=== PATIENT | female | born 1940 | race Caucasian/White ===

== ENCOUNTER 2021-04-16 02:43 | Inpatient (IN) | payer MEDICARE, MEDICAID ==
[~2021-04-16] VITALS: Ht 172.7 cm; Wt 109.9 kg
[~2021-04-16 02:43] MED LIST: ASPI-1169 PO; LOSA25TA3 PO; SIMV10TA98 PO; SITA1TAB6 PO
[2021-04-16] MEDS ORDERED: IV NS 0.9% 1,000 ML BAG IV ONE (03:00)
[2021-04-16] MEDS ORDERED: ACETAMINOPHEN 325 MG TABLET PO ONE (03:00)
[2021-04-16] MEDS ORDERED: ACETAMINOPHEN ES 500 MG TABLET ONE (03:00)
--- NOTE | 2021-04-16 03:02 | NUR ---
PATIENT [id number] FROM [facility] C/O SOB SATTING AT 90% ROOM AIR. PATIENT PLACED ON NC 4L SATTING AT 98%. PATIENT ALERT AND ORIENTED X1. PATIENT RESPONDS TO STIMULI. PATIENT ON O2 AND PLACED ON A MONITOR
--- NOTE | 2021-04-16 03:04 | NUR ---
EMT @ BEDSIDE FOR EKG
--- NOTE | 2021-04-16 03:04 | NUR ---
PROFESSOR OF BIOCHEMISTRY @ BEDSIDE
--- NOTE | 2021-04-16 03:15 | NUR ---
urine sent to lab
[2021-04-16 03:34] LABS: BASOPHILS % (AUTO) 0.2 % (0.0-2.0); HEMATOCRIT 27 % (33-45); HEMOGLOBIN 8.3 g/dL (11.5-14.8); LYMPHOCYTES # (AUTO) 0.4 K/uL (0.8-4.8); LYMPHOCYTES % (AUTO) 1.9 % (20.0-44.0); MEAN CORPUSCULAR HGB CONC 31 g/dl (31.0-36.0); MEAN CORPUSCULAR VOLUME 83 fL (82-100); MONOCYTES # (AUTO) 0.7 K/uL (0.1-1.30); MONOCYTES % (AUTO) 3.3 % (2.0-12.0); NEUTROPHILS % (AUTO) 94.6 % (43.0-81.0); PLATELET COUNT (AUTO) 251 K/uL (150-450); RED BLOOD CELL COUNT(AUTO) 3.19 MIL/uL (4.0-5.2); WHITE BLOOD COUNT (AUTO) 20.1 K/uL (4.3-11.0)
--- NOTE | 2021-04-16 03:37 | NUR ---
RAD AT BEDSIDE
[2021-04-16 03:45] LABS: CARBON DIOXIDE 24 mmol/L (21-32); CHLORIDE 98 mmol/L (98-107); GLUCOSE 210 mg/dL (74-106); POTASSIUM 5.8 mmol/L (3.5-5.1); SODIUM SERUM 131 mmol/L (136-145); UREA NITROGEN, BLOOD 73 mg/dL (7-18)
[2021-04-16 03:59] LABS: ALANINE AMINOTRANSFERASE 209 U/L (12-78); ALBUMIN 1.5 g/dL (3.4-5.0); ALKALINE PHOSPHATASE 232 U/L (46-116); ASPARTATE AMINOTRANSFERASE 322 U/L (15-37); BILIRUBIN,DIRECT 0.4 mg/dL (0.0-0.2); BILIRUBIN,TOTAL 0.7 mg/dL (0.2-1.0)
--- NOTE | 2021-04-16 04:02 | NUR ---
per lab lactic 3.1
[2021-04-16 04:07] LABS: BILIRUBIN,URINE NEGATIVE (NEGATIVE); COLOR,URINE YELLOW (YELLOW); LEUKOCYTE ESTERASE ,URINE LARGE (NEGATIVE); NITRITE, URINE POSITIVE (NEGATIVE); PH,URINE 8.5 (5.0-8.0); PROTEIN,URINE 100 mg/dl (NEGATIVE); UGLUCOSE NEGATIVE (NEGATIVE); UROBILINOGEN,URINE 0.2 EU/dL (0.2)
[2021-04-16] MEDS ORDERED: LEVOFLOXACIN 500 MG /D5W 100ML 500 MG/100 ML PIGGYBACK IV ONE (04:30)
[2021-04-16] MEDS ORDERED: AZITHROMYCIN 500 MG in IV D5W 250 ML IV ONE (04:30)
[2021-04-16] MEDS ORDERED: CALCIUM CHLORIDE 1,000 MG/10 ML DISP.SYRIN IV ONE (04:30)
[2021-04-16] MEDS ORDERED: ASPIRIN 325 MG TABLET PO ONE (04:30)
[2021-04-16] MEDS ORDERED: SODIUM POLYSTYRENE SULFONATE 15 G/60 ML BOTTLE PO ONE (04:30)
[2021-04-16] MEDS ORDERED: ALBUTEROL FS 2.5 MG/3 ML VIAL.NEB NEB ONE (04:30)
[2021-04-16] MEDS ORDERED: SODIUM BICARBONATE SYR 50 MEQ/50 ML DISP.SYRIN IV ONE (04:30)
[2021-04-16] MEDS ORDERED: LORA10TA7 PO (04:44)
[2021-04-16] MEDS ORDERED: ASCO500T21 PO (04:44)
[2021-04-16] MEDS ORDERED: ATOR40TA PO (04:44)
[2021-04-16] MEDS ORDERED: ZINC220C6 PO (04:44)
[2021-04-16] MEDS ORDERED: LEVOFLOXACIN 500 MG /D5W 100ML 100 ML IV ONE (04:44)
[2021-04-16] MEDS ORDERED: CRAN425C6 PO (04:44)
[2021-04-16] MEDS ORDERED: GLIP10TA11 PO (04:44)
[2021-04-16] MEDS ORDERED: CRAN3875 PO (04:44)
[2021-04-16] MEDS ORDERED: MULT-447 PO (04:44)
[2021-04-16] MEDS ORDERED: PREG100C PO (04:44)
[2021-04-16] MEDS ORDERED: LEVO25TA9 PO (04:44)
[2021-04-16] MEDS ORDERED: FAMO20TA8 PO (04:44)
[2021-04-16] MEDS ORDERED: NIFE-35 PO (04:44)
[2021-04-16] MEDS ORDERED: DOCU-141 PO (04:44)
[2021-04-16] MEDS ORDERED: NITR100C6 PO (04:44)
[2021-04-16] MEDS ORDERED: FLUT16SP BNOSTRILS (04:44)
[2021-04-16] MEDS ORDERED: AZITHROMYCIN 500 MG VIAL ONE (04:44)
[2021-04-16] MEDS ORDERED: CALCIUM CHLORIDE 1,000 MG/10 ML DISP.SYRIN ONE (04:45)
[2021-04-16] MEDS ORDERED: SODIUM POLYSTYRENE SULFONATE 15 G/60 ML BOTTLE ONE (04:45)
[2021-04-16] MEDS ORDERED: ASPIRIN 325 MG TABLET ONE (04:45)
[2021-04-16] MEDS ORDERED: SODIUM BICARBONATE SYR 50 MEQ/50 ML DISP.SYRIN ONE (04:45)
[2021-04-16] MEDS ORDERED: ALBUTEROL FS 2.5 MG/3 ML VIAL.NEB ONE (04:47)
[2021-04-16] MEDS ORDERED: LABETALOL 20 MG/4 ML VIAL IV PRN (05:00)
[2021-04-16] MEDS ORDERED: ONDANSETRON HCL/PF 4 MG/2 ML VIAL IVP PRN (05:00)
[2021-04-16] MEDS ORDERED: Z GUARD REMEDY 2 OZ OINT TP PRN (05:00)
[2021-04-16] MEDS ORDERED: DEXTROSE 50%-WATER 50 ML DISP.SYRIN IV PRN (05:00)
[2021-04-16] MEDS ORDERED: ACETAMINOPHEN 325 MG TABLET PO PRN (05:00)
[2021-04-16] MEDS ORDERED: IPRATROPIUM NEB FS 0.5 MG/2.5 ML AMPUL.NEB NEB PRN (05:00)
[2021-04-16] MEDS ORDERED: hydrALAZINE HCL IV 20 MG VIAL IV PRN (05:00)
--- NOTE | 2021-04-16 05:15 | NUR ---
US AT BEDSIDE
[2021-04-16 06:22] LABS: BACTERIA,URINE Moderate /HPF (None Seen); SQUAMOUS EPITHELIAL CELL,UR Few /HPF (None Seen); WBC,URINE 21-50 /HPF (0-3)
--- NOTE | 2021-04-16 06:22 | NUR ---
PATIENT TO BE TRANSFERRED AFTER CHANGE OF SHIFT TO ROOM 104
[2021-04-16 06:23] LABS: URINE AMORPHOUS URATE Moderate /HPF (None Seen)
--- NOTE | 2021-04-16 07:13 | NUR ---
CALLED FOR REPORT. NO NURSE YET ASSIGNED, WORKING ON UNIT ASSIGNMENTS
--- NOTE | 2021-04-16 07:21 | NUR ---
REPORT GIVEN TO FELICIA ORR FOR MARCUS
--- NOTE | 2021-04-16 07:59 | NUR ---
report given to nurse Julio Cesar
[2021-04-16] MEDS ORDERED: VANCOMYCIN 1.25 GM in IV D5W 250 ML IV SCH ×2 (08:00→11:00)
--- NOTE | 2021-04-16 08:38 | NUR ---
THE PATIENT IS TRANSFERED TO ROOM 104 PER ACLS POLICY
[2021-04-16] MEDS ORDERED: CEFEPIME 2 GM in IV D5W 100 ML IV SCH (09:00)
[2021-04-16] MEDS ORDERED: CEFEPIME 1 GM in IV D5W 50 ML IV SCH (09:00)
[2021-04-16] MEDS: FLUTICASONE/VILANTEROL 1 EACH BLST.W.DEV IH SCH (09:00)
[2021-04-16] MEDS ORDERED: VANCOMYCIN 1 GM in IV D5W 250 ML IV SCH (09:00)
--- NOTE | 2021-04-16 09:00 | NUR ---
RN NOTE PT RECEIVED FROM ER. BP 119/65, HR 66, SAT 02 >99% WITH 5L PLACED. PT A/O X2. WILL CONTINUE TO MONITOR.
[2021-04-16] MEDS: ALBUMIN 25% 25 GM in PREMIX 1 EA IV SCH ×2 (09:19→17:17)
[2021-04-16] MEDS: BLOOD SUGAR DIAGNOSTIC 1 EACH STRIP VI SCH ×4 (09:20→22:39)
[2021-04-16] MEDS: HEPARIN SODIUM, PORCINE 5000 UNITS/1 ML VIAL SQ SCH ×2 (09:21→21:37)
[2021-04-16] MEDS: INSULIN REGULAR, HUMAN 100 UNIT/ML 3 ML VIAL SQ PRN ×2 (09:24→12:38)
[2021-04-16] MEDS: FUROSEMIDE 100 MG/10 ML VIAL IV SCH ×3 (12:22→19:46)
[2021-04-16] MEDS: CEFEPIME 2 GM in IV D5W 100 ML IV SCH (13:52)
[2021-04-16 17:00] VITALS: BP 129/69
--- NOTE | 2021-04-16 19:30 | NUR ---
R D ENGINEER OPENING NOTES: RECEIVED PATIENT FROM DAY SHIFT, PATIENT IN BED, AWAKE, A/O X2, NC AT 5L SATURATING AT 95%, R. FOREARM #20 INTACT AND PATENT, TELE MONITOR SHOWS SR, NO SIGNS OF SOB, NO SIGNS OF DISTRESS, BED AT LOWEST POSITION, BRAKES LOCKED AND IN PLACE, SIDE RAILS UP X2, BED ALARM ON, CALL LIGHT WITHIN REACH, WILL CONTINUE TO MONITOR AND IMPLEMENT NURSING INTERVENTIONS NECESSARY.
[2021-04-16 21:00] VITALS: BP 93/42
[2021-04-17 01:00] VITALS: BP 120/54
[2021-04-17 05:00] VITALS: BP 126/53
--- NOTE | 2021-04-17 06:20 | NUR ---
INTERNATIONAL MANAGER CLOSING NOTES: PATIENT IN BED, SLEEPING, A/O X2, TELE MONITOR SHOWS NSR, R. FOREARM #20 PATENT AND INTACT, PATIENT NPO, ON NC AT 5L, NO SOB, NO DISTRESS NOTED, BED AT LOWEST POSITION, BRAKES LOCKED AND IN PLACE, SIDE RAILS UP X2, CALL LIGHT WITHIN REACH, WILL CONTINUE TO MONITOR AND IMPLEMENT NURSING INTERVENTIONS NEEDED. WILL ENDORSE TO DAY SHIFT NURSE.
[2021-04-17 06:48] LABS: BASOPHILS % (AUTO) 0.2 % (0.0-2.0); HEMATOCRIT 23 % (33-45); HEMOGLOBIN 7.6 g/dL (11.5-14.8); LYMPHOCYTES # (AUTO) 0.3 K/uL (0.8-4.8); LYMPHOCYTES % (AUTO) 2.7 % (20.0-44.0); MEAN CORPUSCULAR HGB CONC 33 g/dl (31.0-36.0); MEAN CORPUSCULAR VOLUME 82 fL (82-100); MONOCYTES # (AUTO) 0.4 K/uL (0.1-1.30); MONOCYTES % (AUTO) 3.6 % (2.0-12.0); NEUTROPHILS # (AUTO) 10.1 K/uL (1.8-8.9); NEUTROPHILS % (AUTO) 92.5 % (43.0-81.0); PLATELET COUNT (AUTO) 203 K/uL (150-450); RED BLOOD CELL COUNT(AUTO) 2.78 MIL/uL (4.0-5.2)
[2021-04-17 06:59] LABS: ALANINE AMINOTRANSFERASE 199 U/L (12-78); ALBUMIN 1.9 g/dL (3.4-5.0); ALKALINE PHOSPHATASE 184 U/L (46-116); ASPARTATE AMINOTRANSFERASE 288 U/L (15-37); BILIRUBIN,TOTAL 0.6 mg/dL (0.2-1.0); CALCIUM, SERUM 8.6 mg/dL (8.5-10.1); CARBON DIOXIDE 25 mmol/L (21-32); CHLORIDE 98 mmol/L (98-107); CREATININE 2.5 mg/dL (0.6-1.3); GLUCOSE 93 mg/dL (74-106); MAGNESIUM 2.1 mg/dL (1.8-2.4); PHOSPHORUS 3.9 mg/dL (2.5-4.9); POTASSIUM 4.3 mmol/L (3.5-5.1); SODIUM SERUM 133 mmol/L (136-145); TOTAL PROTEIN, SERUM 6.8 g/dL (6.4-8.2); UREA NITROGEN, BLOOD 77 mg/dL (7-18)
--- NOTE | 2021-04-17 07:00 | NUR ---
RN NOTE RECEIVED PT IN BED, ASLEEP AROUSABLE. NO SOB. ON O2 AT 5LPM SATURATING 95-100. ON TELE MONITOR WITH SR. IV LINE ON RFA INTACT AND FLUSHING WELL. NPO AT THIS TIME PENDING SWALLOW EVAL. LACTIC ACID TRENDING DOWN. SAFETY MEASURES OBSERVED. CALL LIGHT WITHIN REACH. WILL CONTINUE TO MONITOR.
[2021-04-17] MEDS: BLOOD SUGAR DIAGNOSTIC 1 EACH STRIP VI SCH ×4 (08:08→21:55)
[2021-04-17] MEDS: INSULIN REGULAR, HUMAN 100 UNIT/ML 3 ML VIAL SQ PRN ×3 (08:09→17:38)
[2021-04-17 09:00] VITALS: BP 118/58
[2021-04-17] MEDS: FLUTICASONE/VILANTEROL 1 EACH BLST.W.DEV IH SCH (09:00)
[2021-04-17] MEDS: FLUTICASONE PROPIONATE 16 GM BOTTLE NS SCH (09:00)
--- NOTE | 2021-04-17 09:01 | NUR ---
RN NOTE CALLED [facility] [employer] [facility] TO CONTACT DR. LUCAS REGARDING PATIENT BS OF 71 AND FOLLOW UP NPO STATUS.
--- NOTE | 2021-04-17 09:16 | NUR ---
RN NOTE PER DR. LUCAS GIVE D 50 NOW ONE TIME ONLY.
--- NOTE | 2021-04-17 09:50 | NUR ---
RN NOTE POST D50 ADMINISTRATION BS LEVEL OF 149. AWARE.
[2021-04-17] MEDS: HEPARIN SODIUM, PORCINE 5000 UNITS/1 ML VIAL SQ SCH ×2 (09:56→20:24)
[2021-04-17] MEDS: NIFEdipine XL (30MG) 30 MG TAB PO SCH (09:57)
[2021-04-17] MEDS: LORATADINE 10 MG TABLET PO SCH (09:57)
[2021-04-17] MEDS: PREGABALIN 100 MG CAPSULE PO SCH ×2 (09:58→17:14)
[2021-04-17] MEDS: ASCORBIC ACID 500 MG TABLET PO SCH (09:58)
[2021-04-17] MEDS: FAMOTIDINE (20 MG) 20 MG TABLET PO SCH (09:58)
[2021-04-17] MEDS: MULTIVIT W/MINERALS 1 TAB TABLET PO SCH (09:58)
[2021-04-17] MEDS: LEVOTHYROXINE SODIUM 25 MCG TABLET PO SCH (09:58)
[2021-04-17] MEDS: DOCUSATE SODIUM 100 MG CAPSULE PO SCH ×2 (09:58→17:14)
[2021-04-17] MEDS: ASPIRIN 81 MG TAB.CHEW PO SCH (09:58)
[2021-04-17] MEDS: FUROSEMIDE 100 MG/10 ML VIAL IV SCH ×3 (10:00→17:14)
--- NOTE | 2021-04-17 10:00 | NUR ---
RN NOTE PER SPEECH THERAPIST RECOMMENDATION MAY START WITH PUREED WITH NECTAR THICK LIQUID, KEEP HOB ELEVATED >40 DEGREES.
[2021-04-17] MEDS: CEFEPIME 2 GM in IV D5W 100 ML IV SCH ×2 (12:23→20:22)
[2021-04-17 13:00] VITALS: BP 121/60
[2021-04-17 13:13] LABS: THYROID STIMULATING HORMONE 2.498 uIU/mL (0.358-3.74)
--- NOTE | 2021-04-17 16:42 | NUR ---
RN NOTE NOTIFIED DR. MONCADA OF CRITICAL LAB RESULT MRSA + RIGHT CARMINE. Addendum: 04/17/21 at 1704 by KESHAV JIMENEZ RN ERROR
--- NOTE | 2021-04-17 16:59 | NUR ---
RN NOTE NOTIFIED MARY LUCAS NP.OF CRITICAL LAB RESULT MRSA + RIGHT NARE. START BACTROBAN YADI NARES BID X 7 DAYS.
[2021-04-17 17:00] VITALS: BP 96/60
[2021-04-17] MEDS: ATORVASTATIN 40 MG TABLET PO SCH (17:14)
[2021-04-17] MEDS: MUPIROCIN OINT 2% 22 GM TUBE NS SCH (17:39)
--- NOTE | 2021-04-17 18:16 | NUR ---
RN NOTE RECEIVED PT IN BED, ASLEEP AROUSABLE. NO SOB. ON O2 AT 5LPM SATURATING 95-100. ON TELE MONITOR WITH SR. IV LINE ON RFA INTACT AND FLUSHING WELL. ON PUREED DIET. DINNER REFUSED. SAFETY MEASURES OBSERVED. CALL LIGHT WITHIN REACH. MRSA+ R. NARE. BACTROBAN YDAI ORDERED. LASIX GIVEN X3 DOSES COMPLETED. WILL ENDORSE CARE TO NOC RN.
--- NOTE | 2021-04-17 20:00 | NUR ---
Patient is resting at this time, alert to light touch, oriented to self only. No signs of distress. VSS. On 5L via NC. Aspiration, fall , and pressure ulcer precautions in place. Occasional non-productive cough noted. Will continue to monitor pt. closely.
[2021-04-17 21:00] VITALS: BP 102/53
[2021-04-18] VITALS: BP 113/55
[2021-04-18 04:00] VITALS: BP 132/49
--- NOTE | 2021-04-18 06:31 | NUR ---
Patient overnight was alert to touch but once pt. woke up in AM she is alert to voice and oriented to self. Continues to have slurred speech -present on admission. O2 sat 100% on 5L via NC. No episodes of SOB, occasional dry cough noted. No signs of distress. Patient turned q2h, kept clean and dry. Tolerating [place] thickened liquids well. No s/s of hypo or hyperglycemic reactions noted. Aspiration and fall precautions in place. On tele monitor patient reads sinus with occasional PVS, BBB, 1st degree Av block.
[2021-04-18] MEDS: MORPHINE SULFATE INJ 2 MG/ML DISP.SYRIN IV PRN (07:03)
--- NOTE | 2021-04-18 07:12 | NUR ---
patient now completely awake and alert and dysarthria no longer present. PRN pain medication d/t patient moaning and crying and said "dolor". Repositioned as well.
--- NOTE | 2021-04-18 07:30 | NUR ---
RN NOTE RECEIVED PT IN BED ASLEEP AROUSABLE TO NAME. ON O2 5LPM VIA NC. TOLERATING WELL. APPEARS COMFORTABLE AT THIS TIME. IV TO RFA INTACT AND PATENT. HOB UP FOR ASPIRATION PRECAUTION. SAFETY MEASURES MAINTAINED. PLACED CALL LIGHT WITHIN REACH. WILL CONTINUE TO MONITOR.
[2021-04-18 07:36] LABS: BASOPHILS % (AUTO) 0.3 % (0.0-2.0); EOSINOPHILS % (AUTO) 1.6 % (0.0-6.0); HEMATOCRIT 24 % (33-45); HEMOGLOBIN 7.6 g/dL (11.5-14.8); LYMPHOCYTES # (AUTO) 0.7 K/uL (0.8-4.8); LYMPHOCYTES % (AUTO) 7.8 % (20.0-44.0); MEAN CORPUSCULAR HGB CONC 32 g/dl (31.0-36.0); MEAN CORPUSCULAR VOLUME 82 fL (82-100); MONOCYTES # (AUTO) 0.5 K/uL (0.1-1.30); MONOCYTES % (AUTO) 5.1 % (2.0-12.0); NEUTROPHILS # (AUTO) 7.7 K/uL (1.8-8.9); NEUTROPHILS % (AUTO) 85.2 % (43.0-81.0); PLATELET COUNT (AUTO) 199 K/uL (150-450); RED BLOOD CELL COUNT(AUTO) 2.92 MIL/uL (4.0-5.2)
[2021-04-18 07:52] LABS: ALANINE AMINOTRANSFERASE 160 U/L (12-78); ALBUMIN 1.8 g/dL (3.4-5.0); ALKALINE PHOSPHATASE 170 U/L (46-116); ASPARTATE AMINOTRANSFERASE 177 U/L (15-37); BILIRUBIN,DIRECT 0.3 mg/dL (0.0-0.2); BILIRUBIN,TOTAL 0.5 mg/dL (0.2-1.0); CALCIUM, SERUM 8.3 mg/dL (8.5-10.1); CARBON DIOXIDE 24 mmol/L (21-32); CHLORIDE 100 mmol/L (98-107); CREATININE 2.5 mg/dL (0.6-1.3); GLUCOSE 85 mg/dL (74-106); MAGNESIUM 2.1 mg/dL (1.8-2.4); PHOSPHORUS 3.8 mg/dL (2.5-4.9); POTASSIUM 4.2 mmol/L (3.5-5.1); SODIUM SERUM 134 mmol/L (136-145); TOTAL PROTEIN, SERUM 6.8 g/dL (6.4-8.2)
[2021-04-18 07:55] LABS: UREA NITROGEN, BLOOD 87 mg/dL (7-18)
[2021-04-18 08:00] VITALS: BP 134/58
[2021-04-18] MEDS ORDERED: VANCOMYCIN 1 GM in IV D5W 250 ML IV SCH (08:00)
--- NOTE | 2021-04-18 08:00 | NUR ---
RN NOTE MD NOTIFIED PATIENT BUN OF 87, MADE AWARE.
[2021-04-18] MEDS: FAMOTIDINE (20 MG) 20 MG TABLET PO SCH (08:40)
[2021-04-18] MEDS: LEVOTHYROXINE SODIUM 25 MCG TABLET PO SCH (08:40)
[2021-04-18] MEDS: ASPIRIN 81 MG TAB.CHEW PO SCH (08:54)
[2021-04-18] MEDS: DOCUSATE SODIUM 100 MG CAPSULE PO SCH ×2 (08:54→17:24)
[2021-04-18] MEDS: MULTIVIT W/MINERALS 1 TAB TABLET PO SCH (08:54)
[2021-04-18] MEDS: ASCORBIC ACID 500 MG TABLET PO SCH (08:54)
[2021-04-18] MEDS: NIFEdipine XL (30MG) 30 MG TAB PO SCH (08:54)
[2021-04-18] MEDS: PREGABALIN 100 MG CAPSULE PO SCH ×2 (08:54→17:24)
[2021-04-18] MEDS: LORATADINE 10 MG TABLET PO SCH (08:54)
[2021-04-18] MEDS ORDERED: VANCOMYCIN 1.25 GM in IV D5W 250 ML IV SCH (09:00)
[2021-04-18] MEDS: FLUTICASONE/VILANTEROL 1 EACH BLST.W.DEV IH SCH (09:00)
[2021-04-18] MEDS: MUPIROCIN OINT 2% 22 GM TUBE NS SCH ×2 (09:00→18:04)
[2021-04-18] MEDS: FLUTICASONE PROPIONATE 16 GM BOTTLE NS SCH (09:05)
[2021-04-18] MEDS: HEPARIN SODIUM, PORCINE 5000 UNITS/1 ML VIAL SQ SCH (09:29)
[2021-04-18] MEDS: BLOOD SUGAR DIAGNOSTIC 1 EACH STRIP VI SCH ×4 (09:44→22:30)
[2021-04-18] MEDS: CEFEPIME 2 GM in IV D5W 100 ML IV SCH ×2 (11:30→21:47)
[2021-04-18 12:00] VITALS: BP 126/51
[2021-04-18] MEDS: INSULIN REGULAR, HUMAN 100 UNIT/ML 3 ML VIAL SQ PRN ×2 (12:35→17:52)
--- NOTE | 2021-04-18 13:00 | NUR ---
RN NOTE CONTACTED [employer] [facility] TO PAGE MARY LUCAS CRITICAL RESULT BLOOD CULTURE POSITIVE FOR YEAST.
--- NOTE | 2021-04-18 13:30 | NUR ---
RN NOTE PATIENT CAME BACK FROM MRI OF THE HEAD W/O CONTRAST, UNABLE TO PERFORM MRI OF THE HEAD PATIENT UNABLE TO FIT TO THE MRI MACHINE. WILL NOTIFY MARY LUCAS CONTACTED [place] TO PAGE.
--- NOTE | 2021-04-18 14:51 | NUR ---
RN NOTE MARY LUCAS AWARE PATIENT MRI WAS NOT DONE. BLOOD CULTURE POSITIVE FOR YEAST.
[2021-04-18 16:00] VITALS: BP 129/55
[2021-04-18] MEDS ORDERED: DOSE PER PHARMACY MICAFUNGIN 1 EA XX PRN (17:00)
[2021-04-18] MEDS: ATORVASTATIN 40 MG TABLET PO SCH (17:24)
[2021-04-18] MEDS: MICAFUNGIN SODIUM 100 MG in IV NS 0.9% 100 ML IV SCH (18:34)
--- NOTE | 2021-04-18 18:58 | NUR ---
RN NOTE PT IN BED SLEEPING. EASILY AROUSED. NO SOB. O2 AT 5LPM SATURATING WELL. DUE MEDS GIVEN SCHEDULED. WOUND CARE DONE ORDERED. SAFETY MEASURES OBSERVED. CALL LIGHT PLACED WITHIN REACH. KEPT HOB ELEVATED FOR ASPIRATION PRECAUTION. WILL ENDORSE TO HERMAN RN.
--- NOTE | 2021-04-18 19:10 | NUR ---
RN NOTES RECEIVED REPORT FROM MORNING RN PATIENT ASLEEP AROUSABLE. NO SOB NO DISTRESS AT THIS TIME. WITH IV ACCESS AT R FA 322 PATENT FLUSHES WELL. WITH OXYGEN INHALATION AT 5LPM VIA NC TOLERATING WELL. VITAL SIGNS TAKEN AND RECORDED. ALL SAFETY MEASURES IN PLACE AT ALL TIMES. HOB ELEVATED, BED ON LOWEST POSITION AND LOCKED. CALL LIGHT WITHIN REACH. WILL CONTINUE TO MONITOR.
[2021-04-18 20:00] VITALS: BP 132/64
--- NOTE | 2021-04-18 22:00 | NUR ---
RN NOTES BS 100MG/DL NO COVERAGE. PATIENT COMFORTABLE IN BED. WILL CONTINUE TO MONITOR
[2021-04-19 02:11] VITALS: BP 143/56
[2021-04-19 04:00] VITALS: BP 119/75
--- NOTE | 2021-04-19 07:15 | NUR ---
RN NOTES PATIENT REMAINS IN STABLE NO CHANGES IN HEALTH CONDITION. ALL DUE MEDS GIVEN, NO SOB NO DISTRESS. ALL DUE MEDS GIVEN ORDERED. KEPT CLEAN AND DRY AT ALL TIMES. MOUTH CARE RENDERED. ALL SAFETY MEASURES IN PLACE AT ALL TIMES. HOB ELEVATED, CALL LIGHT WITHIN REACH. BED ON LOWEST POSITION AND LOCKED. ALL NEEDS ATTENDED, KEPT CLEAN AND DRY AT ALL TIMES. ENDORSED
--- NOTE | 2021-04-19 07:56 | NUR ---
RN OPEN NOTES PT RECEIVED AWAKE, A/OX1, ON NC AT 5L/M. EVEN AND UNLABORED BREATHING, SR WITH PVC AND BBB NOTED. PT BEDBOUND AND SACRAL REDNESS NOTED WOUND CONSULT PENDING. RFA#22 FLUSHED AND PATENT. SAFETY MEASURES IN PLACE, BED IN LOW POSITION AND LOCKED. AND 3 SIDE RALES UP. PT ON ASPIRATION PERCUSSION AND HOB ELEVATED . WILL CONTINUE TO MONITOR AND MARCUS.
[2021-04-19 08:00] VITALS: BP 132/78
[2021-04-19] MEDS: LEVOTHYROXINE SODIUM 25 MCG TABLET PO SCH (08:25)
[2021-04-19] MEDS: FAMOTIDINE (20 MG) 20 MG TABLET PO SCH (08:25)
[2021-04-19] MEDS: LORATADINE 10 MG TABLET PO SCH (08:25)
[2021-04-19] MEDS: DOCUSATE SODIUM 100 MG CAPSULE PO SCH ×2 (08:25→17:07)
[2021-04-19] MEDS: ASPIRIN 81 MG TAB.CHEW PO SCH (08:25)
[2021-04-19] MEDS: ASCORBIC ACID 500 MG TABLET PO SCH (08:25)
[2021-04-19] MEDS: NIFEdipine XL (30MG) 30 MG TAB PO SCH (08:27)
[2021-04-19] MEDS: MULTIVIT W/MINERALS 1 TAB TABLET PO SCH (08:28)
[2021-04-19] MEDS: PREGABALIN 100 MG CAPSULE PO SCH ×2 (08:28→17:07)
[2021-04-19] MEDS: CEFEPIME 2 GM in IV D5W 100 ML IV SCH ×2 (08:31→21:28)
[2021-04-19 08:36] LABS: BASOPHILS % (AUTO) 0.2 % (0.0-2.0); EOSINOPHILS % (AUTO) 3.7 % (0.0-6.0); HEMATOCRIT 22 % (33-45); HEMOGLOBIN 7.1 g/dL (11.5-14.8); LYMPHOCYTES # (AUTO) 0.7 K/uL (0.8-4.8); LYMPHOCYTES % (AUTO) 10.5 % (20.0-44.0); MEAN CORPUSCULAR HGB CONC 32 g/dl (31.0-36.0); MEAN CORPUSCULAR VOLUME 83 fL (82-100); MONOCYTES # (AUTO) 0.5 K/uL (0.1-1.30); MONOCYTES % (AUTO) 6.8 % (2.0-12.0); NEUTROPHILS # (AUTO) 5.4 K/uL (1.8-8.9); NEUTROPHILS % (AUTO) 78.8 % (43.0-81.0); PLATELET COUNT (AUTO) 182 K/uL (150-450); RED BLOOD CELL COUNT(AUTO) 2.67 MIL/uL (4.0-5.2); WHITE BLOOD COUNT (AUTO) 6.9 K/uL (4.3-11.0)
[2021-04-19] MEDS: MUPIROCIN OINT 2% 22 GM TUBE NS SCH ×2 (08:45→17:02)
[2021-04-19] MEDS: BLOOD SUGAR DIAGNOSTIC 1 EACH STRIP VI SCH ×4 (08:45→21:41)
[2021-04-19] MEDS: FLUTICASONE PROPIONATE 16 GM BOTTLE NS SCH (08:45)
[2021-04-19] MEDS: FLUTICASONE/VILANTEROL 1 EACH BLST.W.DEV IH SCH (08:45)
[2021-04-19] MEDS: INSULIN REGULAR, HUMAN 100 UNIT/ML 3 ML VIAL SQ PRN ×3 (08:46→17:26)
[2021-04-19 08:54] LABS: ALANINE AMINOTRANSFERASE 133 U/L (12-78); ALBUMIN 1.5 g/dL (3.4-5.0); ALKALINE PHOSPHATASE 225 U/L (46-116); ASPARTATE AMINOTRANSFERASE 149 U/L (15-37); BILIRUBIN,TOTAL 0.5 mg/dL (0.2-1.0); CALCIUM, SERUM 7.8 mg/dL (8.5-10.1); CARBON DIOXIDE 22 mmol/L (21-32); CHLORIDE 102 mmol/L (98-107); CREATININE 1.9 mg/dL (0.6-1.3); GLUCOSE 92 mg/dL (74-106); MAGNESIUM 1.8 mg/dL (1.8-2.4); POTASSIUM 3.8 mmol/L (3.5-5.1); SODIUM SERUM 134 mmol/L (136-145); TOTAL PROTEIN, SERUM 6.3 g/dL (6.4-8.2)
[2021-04-19 09:01] LABS: UREA NITROGEN, BLOOD 85 mg/dL (7-18)
[2021-04-19 10:26] LABS: IRON, SERUM 22 ug/dl (50-175); TOTAL IRON BINDING CAPACITY 89 ug/dl (250-450)
[2021-04-19 11:01] LABS: FERRITIN 2084 ng/mL (8-388)
[2021-04-19 12:00] VITALS: BP 121/72
[2021-04-19] MEDS ORDERED: VANCOMYCIN 1.25 GM in IV D5W 250 ML IV SCH (12:45)
[2021-04-19 16:00] VITALS: BP 124/73
--- NOTE | 2021-04-19 16:00 | NUR ---
RN NOTE PATIENT SEEN BY MARY LUCAS, LAB VALUES RELAYED TO MD, NO NEW ORDERS AT THIS TIME.
[2021-04-19] MEDS: MICAFUNGIN SODIUM 100 MG in IV NS 0.9% 100 ML IV SCH (17:02)
[2021-04-19] MEDS: ATORVASTATIN 40 MG TABLET PO SCH (17:07)
--- NOTE | 2021-04-19 18:40 | NUR ---
RN NOTE PT RECEIVED AWAKE, A/OX1, ON NC AT 5L/M. EVEN AND UNLABORED BREATHING, SR WITH PVC AND BBB NOTED. PT BEDBOUND AND SACRAL REDNESS NOTED WOUND CONSULT PENDING. RFA#22 FLUSHED AND PATENT. ON IV ATB FOR SEPSIS NO ASE NOTED AFEBRILE AT THIS TIME, WOUND TREATMENT DONE ORDERED, SAFETY MEASURES IN PLACE, BED IN LOW POSITION AND LOCKED. PT ON ASPIRATION PERCUSSION AND HOB ELEVATED > 40 DEGREES. WILL ENDORSE TO NOC SHIFT.
[2021-04-19 20:00] VITALS: BP 144/65
--- NOTE | 2021-04-19 20:10 | NUR ---
KILN REMOVER NOTE RECEIVED PATIENT AWAKE IN BED, A/O X 1 WITH 5L O2 VIA NASAL CANULA, AND UNLABORED BREATHING O2 STAT IS 99%. IN DIAPER,RIGHT FOREARM IV SITE #22 G, FLUSHED AND PATENT, NO S/S OF INFILTRATION NOTED. SAFETY MEASURES IN PLACE, BED IN LOW POSITION AND LOCKED, SIDE RAILS UP X3. PT ON ASPIRATION PERCUSSION AND HOB ELEVATED > 40 DEGREES. PATIENT ON TELE, WITH SINUS RHYTHM AND PACS HR 79.
[2021-04-19] MEDS: *INSULIN REGULAR(HUMULIN R)HUM 100 UNIT/ML VIAL SQ PRN (21:36)
[2021-04-20] VITALS: BP 144/56
[2021-04-20 04:00] VITALS: BP 147/48
--- NOTE | 2021-04-20 06:00 | NUR ---
FRONT CLERK CLOSING NOTE PATIENT AWAKE IN BED, A/O X 1 WITH 5L O2 VIA NASAL CANULA, AND UNLABORED BREATHING O2 STAT IS 100% IN DIAPER,RIGHT FOREARM IV SITE #22 G, FLUSHED AND PATENT, NO S/S OF INFILTRATION NOTED. SAFETY MEASURES IN PLACE, BED IN LOW POSITION AND LOCKED, SIDE RAILS UP X3. PATIENT ON TELE MONITOR WITH SR WITH PAC WITH HR AT 88.PT ON ASPIRATION PERCUSSION AND HOB ELEVATED > 40 DEGREES. WILL ENDORSE PLAN OF CARE TO ONCOMING NURSE.
--- NOTE | 2021-04-20 07:52 | NUR ---
RN NOTE PATIENT AWAKE IN BED, A/O X 1 WITH 5L O2 VIA NASAL CANULA, AND UNLABORED BREATHING O2 STAT IS 100% IN DIAPER,RIGHT FOREARM IV SITE #22 G, FLUSHED AND PATENT, NO S/S OF INFILTRATION NOTED. SAFETY MEASURES IN PLACE, BED IN LOW POSITION AND LOCKED, SIDE RAILS UP X3. PATIENT ON TELE MONITOR WITH SR WITH PAC WITH HR AT 88.PT ON ASPIRATION PERCUSSION AND HOB ELEVATED > 40 DEGREES. WILL ASSESS, MONITOR AND MARCUS
[2021-04-20 08:00] VITALS: BP 144/73
[2021-04-20] MEDS: BLOOD SUGAR DIAGNOSTIC 1 EACH STRIP VI SCH ×4 (08:13→21:08)
[2021-04-20] MEDS: FAMOTIDINE (20 MG) 20 MG TABLET PO SCH (08:17)
[2021-04-20] MEDS: LORATADINE 10 MG TABLET PO SCH (08:18)
[2021-04-20] MEDS: MULTIVIT W/MINERALS 1 TAB TABLET PO SCH (08:18)
[2021-04-20] MEDS: PREGABALIN 100 MG CAPSULE PO SCH ×2 (08:18→16:59)
[2021-04-20] MEDS: ASCORBIC ACID 500 MG TABLET PO SCH (08:18)
[2021-04-20] MEDS: ASPIRIN 81 MG TAB.CHEW PO SCH (08:18)
[2021-04-20] MEDS: DOCUSATE SODIUM 100 MG CAPSULE PO SCH ×2 (08:22→16:59)
[2021-04-20] MEDS: LEVOTHYROXINE SODIUM 25 MCG TABLET PO SCH (08:22)
[2021-04-20] MEDS: INSULIN REGULAR, HUMAN 100 UNIT/ML 3 ML VIAL SQ PRN ×3 (08:24→17:27)
[2021-04-20 08:27] LABS: BASOPHILS % (AUTO) 0.4 % (0.0-2.0); EOSINOPHILS % (AUTO) 2.1 % (0.0-6.0); HEMATOCRIT 22 % (33-45); HEMOGLOBIN 7.1 g/dL (11.5-14.8); LYMPHOCYTES # (AUTO) 0.8 K/uL (0.8-4.8); LYMPHOCYTES % (AUTO) 13.2 % (20.0-44.0); MEAN CORPUSCULAR HGB CONC 32 g/dl (31.0-36.0); MEAN CORPUSCULAR VOLUME 82 fL (82-100); MONOCYTES # (AUTO) 0.5 K/uL (0.1-1.30); MONOCYTES % (AUTO) 7.6 % (2.0-12.0); NEUTROPHILS # (AUTO) 4.8 K/uL (1.8-8.9); NEUTROPHILS % (AUTO) 76.7 % (43.0-81.0); PLATELET COUNT (AUTO) 197 K/uL (150-450); RED BLOOD CELL COUNT(AUTO) 2.67 MIL/uL (4.0-5.2); WHITE BLOOD COUNT (AUTO) 6.3 K/uL (4.3-11.0)
[2021-04-20 08:35] LABS: CALCIUM, SERUM 7.6 mg/dL (8.5-10.1); CARBON DIOXIDE 20 mmol/L (21-32); CHLORIDE 105 mmol/L (98-107); CREATININE 1.6 mg/dL (0.6-1.3); GLUCOSE 143 mg/dL (74-106); MAGNESIUM 1.8 mg/dL (1.8-2.4); POTASSIUM 3.4 mmol/L (3.5-5.1); SODIUM SERUM 138 mmol/L (136-145)
[2021-04-20 08:37] LABS: UREA NITROGEN, BLOOD 80 mg/dL (7-18)
[2021-04-20] MEDS: FLUTICASONE/VILANTEROL 1 EACH BLST.W.DEV IH SCH (08:46)
[2021-04-20] MEDS: FLUTICASONE PROPIONATE 16 GM BOTTLE NS SCH (08:47)
[2021-04-20] MEDS: MUPIROCIN OINT 2% 22 GM TUBE NS SCH ×2 (08:47→16:58)
[2021-04-20] MEDS: NIFEdipine XL (30MG) 30 MG TAB PO SCH (08:54)
--- NOTE | 2021-04-20 10:29 | NUR ---
WOUND CARE CONSULT: REVIEWED CHART, NURSING DOCUMENTATION AND PHOTOS WHICH INDICATE SACRAL DEEP TISSUE INJURY IN EVOLUTION, PRESENT ON ADMISSION. SURGICAL CONSULT CALLED TO DR GUERRERO. RECOMMENDATIONS MADE FOR SKIN PROTECTION. DISCUSSED WITH NURSING STAFF.MD IN AGREEMENT WITH PLAN OF CARE.
[2021-04-20] MEDS ORDERED: POTASSIUM CHLORIDE 20 MEQ TAB.PRT.SR PO ONE (10:30)
[2021-04-20] MEDS ORDERED: POTASSIUM CHLORIDE 10 MEQ/50 ML PREMIXED IVPB FOR PERIPHERAL LINE IV SCH (11:00)
--- NOTE | 2021-04-20 11:41 | NUR ---
RN NOTE BEDSIDE REPORT GIVEN TO LANCE HERNANDEZ, UPDATED REGARDING PATIENT CURRENT CONDITION, CONTINUE ATB AND MICAFUNGIN, BUN OF 80 PER MARY LUCAS PATIENT WILL BE SEEN BY DR. RAMSEY.
[2021-04-20 12:00] VITALS: BP 132/77
[2021-04-20] MEDS ORDERED: CEFEPIME 2 GM in IV D5W 100 ML IV SCH (14:00)
[2021-04-20] MEDS: DOXYCYCLINE HYCLATE (100 MG) 100 MG TABLET PO SCH ×3 (15:34→21:08)
[2021-04-20 16:21] VITALS: BP 120/70
[2021-04-20] MEDS: MICAFUNGIN SODIUM 100 MG in IV NS 0.9% 100 ML IV SCH (16:44)
--- NOTE | 2021-04-20 18:47 | NUR ---
RN NOTE PATIENT OBSERVED AWAKE IN BED, A/O X 1 WITH 5L O2 VIA NASAL CANULA, AND UNLABORED BREATHING O2 STAT IS 100% IN DIAPER, RIGHT UPPER ARM MIDLINE SITE #18 G, FLUSHED AND PATENT, NO S/S OF INFILTRATION NOTED. ATB GIVEN, NO S/SX OF ASE NOTED, PT AFEBRILE DURING MY SHIFT. HEAD CT SCAN DONE, SAFETY MEASURES IN PLACE, BED IN LOW POSITION AND LOCKED, SIDE RAILS UP X3. PATIENT ON TELE MONITOR WITH SR WITH PAC WITH HR AT 88.PT ON ASPIRATION PERCUSSION AND HOB ELEVATED > 40 DEGREES. WILL ENDORSE TO NOC SHIFT.
[2021-04-20 20:00] VITALS: BP 116/74
--- NOTE | 2021-04-20 21:21 | NUR ---
RN OPENING NOTE RECEIVED PATIENT IN BED.A/OX1. ON OXYGEN 5L/MIN VIA NASAL CANNULA AND HUMIDIFIED AIR. RESPIRATIONS ARE EVEN AND UNLABORED. NO S/S SOB NOTED. NO C/O PAIN AT THIS TIME BUT PATIENT IS CRYING/ MOANING. STATES NO PAIN BUT DOESN'T CLARIFY WHAT THE ISSUE IS. IN NO APPARENT DISTRESS. TELE MONITOR READS AFIB HR 96 WITH OCCASIONAL PVCS.IV ACCESS IN ANI MIDLINE RUNNING TKO. BED IS LOW AND LOCKED, HOB ELEVATED IN HIGH FOWLERS, SIDE RAILS UP X2, CALL LIGHT WITHIN REACH.
[2021-04-20] MEDS: *INSULIN REGULAR(HUMULIN R)HUM 100 UNIT/ML VIAL SQ PRN (21:52)
--- NOTE | 2021-04-20 21:53 | NUR ---
RN NOTE PATIENT REFUSED VIBRAMYCIN 100MG TAB, MEDIATION WAS OPENED AND PREPARED, PATIENT STATED THEY DID NOT WANT MED MULTIPLE TIMES. DID NOT OPEN MOUTH TO RECEIVE. PATIENTS BLOOD SUGAR ALSO TAKEN, BS 163.INFORMED HER WILL BRING INSULIN COVERAGE PATIENT ALSO REFUSED. PROVIDED EDUCATION, CONTINUES TO REFUSE.
[2021-04-21] VITALS: BP 158/66
[2021-04-21 04:00] VITALS: BP 155/76
--- NOTE | 2021-04-21 06:19 | NUR ---
RN CLOSING NOTE RESTING IN BED.A/OX1, ANSWERS SOME QUESTIONS. REMAINS ON OXYGEN 5L/MIN VIA NASAL CANNULA AND HUMIDIFIED AIR. PATIENT DID REMOVE O2 DURING SHIFT, O2 SAT 97%, NO SOB. PATIENT PLACED O2 BACK ON. NO C/O PAIN THROUGHOUT SHIFT. NO DISTRESS. .ANI MIDLINE MAINTAINED. BED REMAINS LOW AND LOCKED, HOB ELEVATED IN HIGH FOWLERS, SIDE RAILS UP X2, CALL LIGHT WITHIN REACH. WILL ENDORSE TO ONCOMING SHIFT.
[2021-04-21 07:11] LABS: BASOPHILS % (AUTO) 0.5 % (0.0-2.0); EOSINOPHILS % (AUTO) 3.1 % (0.0-6.0); HEMATOCRIT 22 % (33-45); HEMOGLOBIN 7.1 g/dL (11.5-14.8); LYMPHOCYTES # (AUTO) 0.7 K/uL (0.8-4.8); LYMPHOCYTES % (AUTO) 14.5 % (20.0-44.0); MEAN CORPUSCULAR HGB CONC 32 g/dl (31.0-36.0); MEAN CORPUSCULAR VOLUME 82 fL (82-100); MONOCYTES # (AUTO) 0.3 K/uL (0.1-1.30); MONOCYTES % (AUTO) 7.2 % (2.0-12.0); NEUTROPHILS # (AUTO) 3.4 K/uL (1.8-8.9); NEUTROPHILS % (AUTO) 74.7 % (43.0-81.0); PLATELET COUNT (AUTO) 204 K/uL (150-450); WHITE BLOOD COUNT (AUTO) 4.6 K/uL (4.3-11.0)
--- NOTE | 2021-04-21 07:30 | NUR ---
RN OPENING NOTE RECEIVED PATIENT IN BED SLEEPING. PT ON OXYGEN 5L/MIN VIA NASAL CANNULA AND HUMIDIFIED AIR. RESPIRATIONS ARE EVEN AND UNLABORED. NO S/S SOB NOTED. NO C/O PAIN AT THIS TIME . IV ACCESS IN ANI MIDLINE RUNNING TKO. BED IS LOW AND LOCKED, HOB ELEVATED IN HIGH FOWLERS, SIDE RAILS UP X2, CALL LIGHT WITHIN REACH. WILL CONTINUE TO MONITOR.
[2021-04-21 07:31] LABS: CALCIUM, SERUM 8.3 mg/dL (8.5-10.1); CREATININE 1.3 mg/dL (0.6-1.3); MAGNESIUM 1.8 mg/dL (1.8-2.4); POTASSIUM 3.1 mmol/L (3.5-5.1)
[2021-04-21] MEDS: FAMOTIDINE (20 MG) 20 MG TABLET PO SCH (07:40)
[2021-04-21] MEDS: LEVOTHYROXINE SODIUM 25 MCG TABLET PO SCH (07:47)
[2021-04-21] MEDS: BLOOD SUGAR DIAGNOSTIC 1 EACH STRIP VI SCH ×4 (07:48→21:35)
[2021-04-21 08:00] VITALS: BP 151/89
[2021-04-21] MEDS: POTASSIUM CHLORIDE 20 MEQ TAB.PRT.SR PO SCH ×2 (08:30→09:30)
[2021-04-21] MEDS: ASCORBIC ACID 500 MG TABLET PO SCH (09:00)
[2021-04-21] MEDS: PREGABALIN 100 MG CAPSULE PO SCH ×2 (09:00→17:00)
[2021-04-21] MEDS: DOCUSATE SODIUM LIQ 100 MG/10 ML UDC NG SCH ×2 (09:00→17:00)
[2021-04-21] MEDS: NIFEdipine XL (30MG) 30 MG TAB PO SCH (09:00)
[2021-04-21] MEDS: DOXYCYCLINE HYCLATE (100 MG) 100 MG TABLET PO SCH ×2 (09:00→21:00)
[2021-04-21] MEDS: MULTIVIT W/MINERALS 1 TAB TABLET PO SCH (09:00)
[2021-04-21] MEDS: LORATADINE 10 MG TABLET PO SCH (09:00)
[2021-04-21] MEDS: ASPIRIN 81 MG TAB.CHEW PO SCH (09:00)
[2021-04-21] MEDS: MUPIROCIN OINT 2% 22 GM TUBE NS SCH ×2 (09:08→17:00)
[2021-04-21] MEDS: FLUTICASONE PROPIONATE 16 GM BOTTLE NS SCH (09:14)
[2021-04-21] MEDS: FLUTICASONE/VILANTEROL 1 EACH BLST.W.DEV IH SCH (09:14)
[2021-04-21] MEDS: PROSOURCE / PROSTAT (PYXIS) 30 ML UDC PO SCH (09:30)
[2021-04-21] MEDS ORDERED: POTASSIUM CHLORIDE 20 MEQ TAB.PRT.SR PO SCH (10:00)
--- NOTE | 2021-04-21 10:25 | NUR ---
PT REFUSING ALL PO MEDS THIS AM. NOTIFIED. NO NEW ORDERS AT THIS TIME.
[2021-04-21] MEDS: POTASSIUM CL. PREMIX PERIPHER. 50 ML IV SCH ×6 (11:31→17:39)
[2021-04-21 12:00] VITALS: BP 151/89
[2021-04-21] MEDS: CEFEPIME 2 GM in IV D5W 100 ML IV SCH (12:31)
--- NOTE | 2021-04-21 18:17 | NUR ---
DAUGHTER IN LAW CAME TO SEE PT. TOOK HOME PT'S DENTURES AND SIPP CUP.
[2021-04-21] MEDS: MICAFUNGIN SODIUM 100 MG in IV NS 0.9% 100 ML IV SCH (18:55)
--- NOTE | 2021-04-21 19:08 | NUR ---
RN CLOSING NOTE RESTING IN BED. A/OX1, ANSWERS SOME QUESTIONS. REMAINS ON OXYGEN 5L/MIN VIA NASAL CANNULA AND HUMIDIFIED AIR. O2 SAT 95-100%, NO SOB. NO C/O PAIN THROUGHOUT SHIFT. PT REFUSED ALL PO MEDS AND FOOD DURING SHIFT. ANI MIDLINE MAINTAINED. BED IN LOW AND LOCKED POSITION, HOB ELEVATED IN HIGH FOWLERS 40 DEGREES PER MD ORDER. SIDE RAILS UP X2, CALL LIGHT WITHIN REACH. WILL ENDORSE TO ONCOMING SHIFT.
--- NOTE | 2021-04-21 19:30 | NUR ---
RN OPENING NOTE RECEIVED PATIENT IN BED. A/OX1. CURRENTLY TOLERATING ROOM AIR. RESPIRATIONS ARE EVEN AND UNLABORED. NO S/S SOB NOTED. NO C/O PAIN. IN NO APPARENT DISTRESS. IV ACCESS IN ANI MIDLINE PATENT AND SALINE LOCKED. BED IS LOW AND LOCKED, HOB ELEVATED IN HIGH FOWLERS, SIDE RAILS UP X2, CALL LIGHT WITHIN REACH.
[2021-04-21 20:00] VITALS: BP 158/83
--- NOTE | 2021-04-21 21:42 | NUR ---
RN NOTE PATIENT REFUSED VIBRAMYCIN PO. ALLOWED ME TO CHECK BLOOD SUGAR, BLOOD SUGAR IS 168. PER REPORT PATIENT HAD POOR PO INTAKE THROUGHOUT THE DAY, NO INSULIN COVERAGE GIVEN THROUGHOUT THE DAY. PATIENT IS CURRENTLY REFUSING PO INTAKE FOR FOOD AND FLUIDS, HOLDING INSULIN COVERAGE.
[2021-04-22] MEDS: CEFEPIME 2 GM in IV D5W 100 ML IV SCH ×2 (00:02→14:11)
[2021-04-22 04:00] VITALS: BP 121/79
--- NOTE | 2021-04-22 06:20 | NUR ---
MS MARKETING AUTOMATION SPECIALIST NOTES PATIENT WAS TRANSFERRED TO THE UNIT VIA GURNEY AT 0620 ACCOMPANIED BY NURSE MURRAY. PATIENT WAS ORIENTED TO THE STAFF AND ROOM. PATIENT'S ALERT AND ORIENTED X1. PATIENT'S STABLE ON ROOM AIR. ANI CARLOS NOTED. PATIENT'S IN NO ACUTE DISTRESS AT THIS TIME. SAFETY MEASURES IN PLACE: BED LOCKED, BED ALARM ON, SIDE RAILS UPX3, AND CALL LIGHT WITHIN REACH OF THE PATIENT. WILL CONTINUE TO MONITOR THE PATIENT.
--- NOTE | 2021-04-22 06:30 | NUR ---
TRANSFER OF CARE NOTE REPORT GIVEN TO VITALY DUARTE. PATIENT IS BEING TRANSFERRED WITH ALL MEDS, BELONGINGS AND CHART. PATIENT IS TOLERATING ROOM AIR. NO RESP DISTRESS. NO C/O PAIN, CONTINUES TO MOAN BUT DOESN'T STATE WHAT THE ISSUE IS. IV ACCES S IN ANI MIDLINE SALE LOCKED. NO DISTRESS DURING TRANSFER.
--- NOTE | 2021-04-22 06:40 | NUR ---
MS RN CLOSING NOTES PATIENT IS SLEEPING IN BED. PATIENT'S A/OX4. PATIENT'S STABLE ON RA. NO IV ACCESS DUE TO CLINICAL TRIAL STATUS. PATIENT'S IN NO ACUTE DISTRESS AT THIS TIME. SAFETY MEASURES IN PLACE: BED LOCKED, SIDE RAILS UPX2, AND CALL LIGHT WITHIN REACH. WILL ENDORSE CARE TO THE DAY SHIFT NURSE.
[2021-04-22 06:43] LABS: BASOPHILS % (AUTO) 0.6 % (0.0-2.0); EOSINOPHILS % (AUTO) 1.9 % (0.0-6.0); HEMATOCRIT 24 % (33-45); HEMOGLOBIN 7.9 g/dL (11.5-14.8); LYMPHOCYTES # (AUTO) 0.7 K/uL (0.8-4.8); LYMPHOCYTES % (AUTO) 14.3 % (20.0-44.0); MEAN CORPUSCULAR HGB CONC 32 g/dl (31.0-36.0); MEAN CORPUSCULAR VOLUME 82 fL (82-100); MONOCYTES # (AUTO) 0.4 K/uL (0.1-1.30); MONOCYTES % (AUTO) 7.6 % (2.0-12.0); NEUTROPHILS # (AUTO) 3.9 K/uL (1.8-8.9); NEUTROPHILS % (AUTO) 75.6 % (43.0-81.0); PLATELET COUNT (AUTO) 228 K/uL (150-450); RED BLOOD CELL COUNT(AUTO) 2.95 MIL/uL (4.0-5.2); WHITE BLOOD COUNT (AUTO) 5.2 K/uL (4.3-11.0)
[2021-04-22 07:23] LABS: CREATININE 1.1 mg/dL (0.6-1.3); MAGNESIUM 1.8 mg/dL (1.8-2.4); PHOSPHORUS 1.8 mg/dL (2.5-4.9); POTASSIUM 3.4 mmol/L (3.5-5.1)
--- NOTE | 2021-04-22 07:25 | NUR ---
MS RN CLOSING NOTES PATIENT AWAKE IN BED RESTING. PATIENT'S ALERT AND ORIENTED X1. PATIENT'S STABLE ON ROOM AIR. ANI ML NOTED. PATIENT'S IN NO ACUTE DISTRESS AT THIS TIME. SAFETY MEASURES IN PLACE: BED LOCKED, BED ALARM ON, SIDE RAILS UPX3, AND CALL LIGHT WITHIN REACH OF THE PATIENT. ENDORSED CARE TO THE DAY SHIFT NURSE.
[2021-04-22] MEDS: BLOOD SUGAR DIAGNOSTIC 1 EACH STRIP VI SCH ×4 (07:34→23:56)
[2021-04-22] MEDS: INSULIN REGULAR, HUMAN 100 UNIT/ML 3 ML VIAL SQ PRN (07:44)
[2021-04-22 08:00] VITALS: BP 141/56
--- NOTE | 2021-04-22 08:07 | NUR ---
MS RN OPENING NOTES RECEIVED Pt AWAKE IN BED RESTING. PATIENT'S ALERT AND ORIENTED X1. PATIENT'S STABLE ON ROOM AIR. R UA ML NOTED, SALINE LOCK. NO PAIN OR DISCOMFORT NOTED AT THIS TIME. SAFETY MEASURES IN PLACE: BED IS LOCKED AND IN LOWEST POSITION, BED ALARM ON, SIDE RAILS UPX3, CALL LIGHT AND BEDSIDE TABLE WITHIN REACH. WILL CONTINUE TO MONITOR THROUGH OUT THE SHIFT.
[2021-04-22] MEDS: MORPHINE SULFATE INJ 2 MG/ML DISP.SYRIN IV PRN ×2 (08:41→17:42)
[2021-04-22] MEDS: ASCORBIC ACID 500 MG TABLET PO SCH ×2 (09:00→09:10)
[2021-04-22] MEDS: PROSOURCE / PROSTAT (PYXIS) 30 ML UDC PO SCH (09:00)
[2021-04-22] MEDS: ASPIRIN 81 MG TAB.CHEW PO SCH ×2 (09:00→09:08)
[2021-04-22] MEDS: DOCUSATE SODIUM LIQ 100 MG/10 ML UDC NG SCH ×3 (09:00→17:00)
[2021-04-22] MEDS: NIFEdipine XL (30MG) 30 MG TAB PO SCH ×2 (09:00→09:10)
[2021-04-22] MEDS: MULTIVIT W/MINERALS 1 TAB TABLET PO SCH ×2 (09:00→09:10)
[2021-04-22] MEDS: PREGABALIN 100 MG CAPSULE PO SCH ×3 (09:00→17:00)
[2021-04-22] MEDS: LORATADINE 10 MG TABLET PO SCH ×2 (09:00→09:09)
[2021-04-22] MEDS: DOXYCYCLINE HYCLATE (100 MG) 100 MG TABLET PO SCH ×3 (09:00→21:55)
[2021-04-22] MEDS: POTASSIUM CHLORIDE 20 MEQ TAB.PRT.SR PO SCH ×4 (09:08→10:28)
[2021-04-22] MEDS: FLUTICASONE/VILANTEROL 1 EACH BLST.W.DEV IH SCH (09:12)
[2021-04-22] MEDS: FLUTICASONE PROPIONATE 16 GM BOTTLE NS SCH (09:13)
[2021-04-22] MEDS: MUPIROCIN OINT 2% 22 GM TUBE NS SCH ×2 (09:13→17:34)
--- NOTE | 2021-04-22 09:45 | NUR ---
MS RN NOTES- MEDS Pt WAS NOT COMPLIANT WITH ORAL MEDICATIONS. UNABLE TO SWALLOW. WILL NOTIFY MD
--- NOTE | 2021-04-22 12:26 | NUR ---
MS/RN NOTES- ACCUCHECK BLOOD SUGAR IS 206 BUT WILL NOT GIVE INSULIN COVERAGE BECAUSE THE PATIENT REFUSED TO EAT. NOTIFIED DR. STEPHENSON. WILL CONTINUE TO MONITOR.
[2021-04-22] MEDS ORDERED: POTASSIUM CHLORIDE 10 MEQ/50 ML PREMIXED IVPB FOR PERIPHERAL LINE IV ONE (13:30)
[2021-04-22] MEDS ORDERED: NEUTRA PHOS 1 POWD.PACKET PO ONE (14:00)
[2021-04-22] MEDS: LORAZEPAM INJ 2 MG/ML VIAL IV PRN ×2 (14:18→22:23)
[2021-04-22] MEDS: POTASSIUM CL. PREMIX PERIPHER. 50 ML IV SCH ×3 (15:30→19:12)
[2021-04-22 16:00] VITALS: BP 146/96
[2021-04-22 16:46] VITALS: BP 146/96
--- NOTE | 2021-04-22 16:48 | NUR ---
MS/RN NOTES- PATIENT REFUSED TO EAT OR DRINK PATIENT REFUSED TO EAT OR DRINK. MD IS AWARE, GRANDSON CAME BY TO TRY TO FEED PATIENT BUT REFUSED. ASKED AND NOTIFIED DR. RAMSEY TO HAVE AN ORDER OF IV HYDRATION VIA SECURE TEXT. DR. RAMSEY SAID HE WILL PUT IN AN ORDER LATER. WILL MONITOR.
[2021-04-22] MEDS: MICAFUNGIN SODIUM 100 MG in IV NS 0.9% 100 ML IV SCH (18:19)
[2021-04-22] MEDS: IV D5/ 0.9% NACL 1,000 ML IV SCH (18:57)
--- NOTE | 2021-04-22 19:27 | NUR ---
MS RN CLOSING NOTES Pt IN BED RESTING. PATIENT'S ALERT AND ORIENTED X1. PATIENT'S STABLE ON ROOM AIR. ANI ML WITH D5 NS @ 75mL/hr. PATIENT'S IN NO ACUTE DISTRESS AT THIS TIME. ALL NEEDS MET AT THIS TIME. SAFETY MEASURES IN PLACE: BED LOCKED, BED ALARM ON, SIDE RAILS UPX3, AND CALL LIGHT WITHIN REACH PATIENT. WILL ENDORSE TO ONCOMING SHIFT
[2021-04-22 20:00] VITALS: BP 110/66
--- NOTE | 2021-04-22 23:30 | NUR ---
MS RN NOTE PATIENT'S BLOOD SUGAR 166, HOWEVER PATIENT REFUSING ALL ORAL INTAKE. NO INSULIN GIVEN
[2021-04-23] MEDS: MORPHINE SULFATE INJ 2 MG/ML DISP.SYRIN IV PRN ×3 (01:32→11:08)
[2021-04-23] MEDS: FAMOTIDINE (20 MG) 20 MG TABLET PO SCH (07:30)
[2021-04-23] MEDS: LEVOTHYROXINE SODIUM 25 MCG TABLET PO SCH (07:30)
--- NOTE | 2021-04-23 07:30 | NUR ---
MS RN CLOSING NOTE PT AWAKE IN BED, PT ALERT/ORIENTED X 1, MOANING DESPITE ATIVAN AND MORPHINE GIVEN. PT STABLE ON RA, NO S/S OF DISTRESS OR SOB NOTED, BREATHING EVEN AND UNLABORED. PT'S BLOOD SUGAR THIS MORNING, HOWEVER, PT REFUSING ALL ORAL INTAKE THEREFORE INSULIN NOT GIVEN. PO MEDICATIONS NOT GIVEN BECAUSE PT REFUSING TO TAKE. WOUND CARE DONE. WOUND CARE CONSULT ORDERED FOR LEFT HAND SKIN TEAR. ANI MIDLINE RUNNING D5NS @ 75 ML/HR. SAFETY MEASURES IN PLACE: CALL LIGHT WITHIN REACH, SIDE RAILS UP X 3, BED LOCKED IN LOW POSITION, HOB ELEVATED. ENDORSED TO DAY SHIFT NURSE FOR CONTINUITY OF CARE
[2021-04-23] MEDS: BLOOD SUGAR DIAGNOSTIC 1 EACH STRIP VI SCH ×4 (07:31→21:34)
[2021-04-23 08:00] VITALS: BP 149/90
--- NOTE | 2021-04-23 08:04 | NUR ---
MS RN OPENING NOTES RECEIVED Pt AWAKE IN BED A/O X1. PATIENT'S STABLE ON ROOM AIR. Pt IS MOANING IN BED, LAST PAIN MED WAS GIVEN AT 0618. IV ON R UA ML NOTED, WITH D5NS RUNNING AT 75mL/hr. SAFETY MEASURES IN PLACE: BED IS LOCKED AND IN LOWEST POSITION, BED ALARM ON, SIDE RAILS UPX3, CALL LIGHT AND BEDSIDE TABLE WITHIN REACH. WILL CONTINUE TO MONITOR THROUGH OUT THE SHIFT.
--- NOTE | 2021-04-23 08:32 | NUR ---
MS RN NOTES- AM MEDICATIONS DID A BEDSIDE SWALLOW EVAL FOR TODAY, Pt REFUSED TO OPEN HER MOUTH FOR APPLE SAUCE, REFUSED ANY PO INTAKE. AM MEDS PO NOT GIVEN. WILL NOTIFY MD. WILL CONTINUE TO MONITOR Pt.
[2021-04-23] MEDS: IV D5/ 0.9% NACL 1,000 ML IV SCH ×2 (08:37→21:42)
[2021-04-23] MEDS: MULTIVIT W/MINERALS 1 TAB TABLET PO SCH (09:00)
[2021-04-23] MEDS: ASCORBIC ACID 500 MG TABLET PO SCH (09:00)
[2021-04-23] MEDS: PROSOURCE / PROSTAT (PYXIS) 30 ML UDC PO SCH (09:00)
[2021-04-23] MEDS: DOCUSATE SODIUM LIQ 100 MG/10 ML UDC NG SCH ×2 (09:00→17:00)
[2021-04-23] MEDS: PREGABALIN 100 MG CAPSULE PO SCH ×2 (09:00→17:00)
[2021-04-23] MEDS: LORATADINE 10 MG TABLET PO SCH (09:00)
[2021-04-23] MEDS: NIFEdipine XL (30MG) 30 MG TAB PO SCH (09:00)
[2021-04-23] MEDS: FLUTICASONE/VILANTEROL 1 EACH BLST.W.DEV IH SCH (09:00)
[2021-04-23] MEDS: ASPIRIN 81 MG TAB.CHEW PO SCH (09:00)
[2021-04-23 09:12] LABS: BASOPHILS % (AUTO) 0.7 % (0.0-2.0); EOSINOPHILS % (AUTO) 1.8 % (0.0-6.0); HEMATOCRIT 26 % (33-45); HEMOGLOBIN 8.1 g/dL (11.5-14.8); LYMPHOCYTES # (AUTO) 0.8 K/uL (0.8-4.8); LYMPHOCYTES % (AUTO) 17.3 % (20.0-44.0); MEAN CORPUSCULAR HGB CONC 31 g/dl (31.0-36.0); MEAN CORPUSCULAR VOLUME 85 fL (82-100); MONOCYTES # (AUTO) 0.3 K/uL (0.1-1.30); MONOCYTES % (AUTO) 6.1 % (2.0-12.0); NEUTROPHILS # (AUTO) 3.5 K/uL (1.8-8.9); NEUTROPHILS % (AUTO) 74.1 % (43.0-81.0); PLATELET COUNT (AUTO) 214 K/uL (150-450); RED BLOOD CELL COUNT(AUTO) 3.06 MIL/uL (4.0-5.2); WHITE BLOOD COUNT (AUTO) 4.7 K/uL (4.3-11.0)
[2021-04-23 09:34] LABS: CALCIUM, SERUM 8.2 mg/dL (8.5-10.1); CREATININE 1.2 mg/dL (0.6-1.3); PHOSPHORUS 2.1 mg/dL (2.5-4.9); POTASSIUM 3.6 mmol/L (3.5-5.1)
[2021-04-23] MEDS: FLUTICASONE PROPIONATE 16 GM BOTTLE NS SCH (11:09)
[2021-04-23] MEDS: MUPIROCIN OINT 2% 22 GM TUBE NS SCH ×2 (11:09→18:05)
[2021-04-23] MEDS ORDERED: NEUTRA PHOS 1 POWD.PACKET PO ONE (13:00)
[2021-04-23] MEDS: LORAZEPAM INJ 2 MG/ML VIAL IV PRN ×2 (13:08→19:36)
[2021-04-23 16:00] VITALS: BP 130/78
[2021-04-23] MEDS: QUETIAPINE FUMARATE 25 MG TABLET PO SCH (17:00)
--- NOTE | 2021-04-23 17:38 | NUR ---
MS RN NOTES- MEDICATIONS DID A BEDSIDE SWALLOW EVAL THIS MORNING, Pt REFUSED TO OPEN HER MOUTH FOR APPLE SAUCE. EVENING MEDS Pt REFUSED ANY PO INTAKE. PM MEDS PO NOT GIVEN. NOTIFIED. WILL CONTINUE TO MONITOR Pt.
[2021-04-23] MEDS: MICAFUNGIN SODIUM 100 MG in IV NS 0.9% 100 ML IV SCH (17:55)
--- NOTE | 2021-04-23 19:06 | NUR ---
MS RN CLOSING NOTES Pt IN BED RESTING. PATIENT'S ALERT AND ORIENTED X1. PATIENT'S STABLE ON ROOM AIR. BREATHING IS EVEN AND UNLABORED. ANI ML WITH D5 NS @ 75mL/hr. PATIENT'S IN NO ACUTE DISTRESS AT THIS TIME. PO MEDS NOT GIVEN THROUGHOUT THE DAY Pt REFUSED. WOUND CONSULT COMPLETED. ALL NEEDS MET AT THIS TIME. SAFETY MEASURES IN PLACE: BED IS LOCKED, AND IN LOWEST POSITION, BED ALARM ON, SIDE RAILS UPX3, AND CALL LIGHT WITHIN REACH PATIENT. WILL ENDORSE TO ONCOMING SHIFT
--- NOTE | 2021-04-23 19:45 | NUR ---
MS RN OPENING NOTES PT AWAKE IN BED WITH EYES CLOSED, PT ALERT/ORIENTED X 1, PT JUST MOANING AND RESTLESS. ATIVAN 1 MG IV GIVEN ORDERED. PT STABLE ON RA, NO S/S OF DISTRESS OR SOB NOTED, BREATHING EVEN AND UNLABORED. ANI MIDLINE INTACT AND RUNNING D5NS @ 75 ML/HR. DRESSING ON LEFT HAND CLEAN, DRY AND INTACT. PER DAY SHIFT NURSE, PT REFUSED ALL PO INTAKE AND PO MEDS. SAFETY MEASURES IN PLACE: CALL LIGHT WITHIN REACH, SIDE RAILS UP X 3, BED LOCKED IN LOW POSITION, HOB ELEVATED, BED ALARM ON. WILL CONTINUE TO MONITOR PATIENT
[2021-04-23 20:00] VITALS: BP 158/58
--- NOTE | 2021-04-23 21:35 | NUR ---
MS RN NOTE PT BLOOD SUGAR IS 190, NO INSULIN GIVEN B/C PATIENT IS REFUSING ALL PO INTAKE. ATTEMPTED TO GIVE APPLESAUCE BUT PT CLOSED MOUTH AND REFUSED TO OPEN. REMERON 15 MG PO NOT GIVEN FOR THIS REASON.
[2021-04-23] MEDS ORDERED: MIRTAZAPINE 15 MG TABLET PO SCH (22:00)
[2021-04-24] MEDS: LORAZEPAM INJ 2 MG/ML VIAL IV PRN (01:38)
--- NOTE | 2021-04-24 01:45 | NUR ---
MS RN NOTE PATIENT CONTINUES TO MOAN UNCONSOLABLY DESPITE REPOSITIONING TO MAKE PATIENT COMFORTABLE AND MAKING SURE PATIENT ISN'T WET/SOILED. NO FACIAL GRIMACING OR RESTLESSNESS OBSERVED. ATIVAN 1 MG IV GIVEN ORDERED. WILL CONTINUE TO MONITOR PATIENT
--- NOTE | 2021-04-24 06:45 | NUR ---
324-2 PT AWAKE IN BED, PT DOES NOT RESPOND WHEN SPOKEN TO, PT JUST MOANS, PT NOT ABLE TO MAKE NEEDS KNOWN. PT DOES NOT APPEAR UNCOMFORTABLE OR IN PAIN, NO FACIAL GRIMACING OR RESTLESSNESS BUT CONTINUES TO MOAN, PER FAMILY THIS WAS HAPPENING IN THE SN[facility] WELL. PER DAY SHIFT NURSE, PT'S FAMILY REQUESTED NO MORPHINE BE GIVEN TO PT. PT STABLE ON RA, NO S/S OF DISTRESS OR SOB NOTED, BREATHING EVEN AND UNLABORED. PT'S BLOOD SUGAR THIS MORNING WAS 230, HOWEVER, PT REFUSING ALL ORAL INTAKE THEREFORE INSULIN NOT GIVEN. PO MEDICATIONS NOT GIVEN BECAUSE PT REFUSING ALL PO INTAKE. WOUND CARE ON LEFT HAND AND SACRUM DONE. ANI MIDLINE RUNNING D5NS @ 75 ML/HR. SAFETY MEASURES IN PLACE: CALL LIGHT WITHIN REACH, SIDE RAILS UP X 3, BED LOCKED IN LOW POSITION, HOB ELEVATED. WILL ENDORSE TO DAY SHIFT NURSE FOR CONTINUITY OF CARE Addendum: 04/24/21 at 0646 by FRITZ GUILLEN RN RN CLOSING NOTE
[2021-04-24] MEDS: BLOOD SUGAR DIAGNOSTIC 1 EACH STRIP VI SCH ×2 (06:51→12:05)
[2021-04-24 07:11] LABS: CALCIUM, SERUM 8.2 mg/dL (8.5-10.1); PHOSPHORUS 1.8 mg/dL (2.5-4.9); POTASSIUM 3.2 mmol/L (3.5-5.1)
[2021-04-24 07:25] LABS: BASOPHILS % (AUTO) 0.8 % (0.0-2.0); EOSINOPHILS % (AUTO) 3.8 % (0.0-6.0); HEMATOCRIT 23 % (33-45); HEMOGLOBIN 7.3 g/dL (11.5-14.8); LYMPHOCYTES # (AUTO) 0.7 K/uL (0.8-4.8); LYMPHOCYTES % (AUTO) 15.2 % (20.0-44.0); MEAN CORPUSCULAR HGB CONC 32 g/dl (31.0-36.0); MEAN CORPUSCULAR VOLUME 86 fL (82-100); MONOCYTES # (AUTO) 0.3 K/uL (0.1-1.30); MONOCYTES % (AUTO) 6.1 % (2.0-12.0); NEUTROPHILS # (AUTO) 3.6 K/uL (1.8-8.9); NEUTROPHILS % (AUTO) 74.1 % (43.0-81.0); PLATELET COUNT (AUTO) 228 K/uL (150-450); RED BLOOD CELL COUNT(AUTO) 2.65 MIL/uL (4.0-5.2); WHITE BLOOD COUNT (AUTO) 4.8 K/uL (4.3-11.0)
[2021-04-24] MEDS: LEVOTHYROXINE SODIUM 25 MCG TABLET PO SCH (07:30)
[2021-04-24] MEDS: FAMOTIDINE (20 MG) 20 MG TABLET PO SCH (07:30)
--- NOTE | 2021-04-24 07:40 | NUR ---
RN NOTE RECEIVED PT AWAKE IN BED, ALERT AND VERBALLY RESPONSIVE. NOT IN DISTRESS. RAC G#[address] PATENT AND RUNNING WITH NS @ 75 CC/HR. SAFETY MEASURES FOLLOWED. WILL CONTINUE TO MONITOR.
--- NOTE | 2021-04-24 07:45 | NUR ---
RN NOTE RECEIVED PT AWAKE IN BED, ALERT AND WITH EPISODES OF GRIMACING AND MOANING. WILL REASSESS FOR PAIN. ANI MIDLINE IN PLACE AND PATENT, RUNNING WITH D5NS @ 75 CC/HR. SAFETY MEASURES FOLLOWED. WILL CONTINUE TO MONITOR.
[2021-04-24 08:05] VITALS: BP 125/72
[2021-04-24] MEDS: PREGABALIN 100 MG CAPSULE PO SCH (09:00)
[2021-04-24] MEDS: DOCUSATE SODIUM LIQ 100 MG/10 ML UDC NG SCH (09:00)
[2021-04-24] MEDS: PROSOURCE / PROSTAT (PYXIS) 30 ML UDC PO SCH (09:00)
[2021-04-24] MEDS: NIFEdipine XL (30MG) 30 MG TAB PO SCH (09:00)
[2021-04-24] MEDS: MULTIVIT W/MINERALS 1 TAB TABLET PO SCH (09:00)
[2021-04-24] MEDS: ASCORBIC ACID 500 MG TABLET PO SCH (09:00)
[2021-04-24] MEDS: QUETIAPINE FUMARATE 25 MG TABLET PO SCH (09:00)
[2021-04-24] MEDS: ASPIRIN 81 MG TAB.CHEW PO SCH (09:00)
[2021-04-24] MEDS: LORATADINE 10 MG TABLET PO SCH (09:00)
[2021-04-24] MEDS: FLUTICASONE/VILANTEROL 1 EACH BLST.W.DEV IH SCH (09:00)
--- NOTE | 2021-04-24 09:37 | NUR ---
WOUND CARE CONSULT: PT SEEN FOR LEFT HAND SKIN TEAR. WOUND CARE ORDERS IN PLACE AND DISCUSSED WITH NURSING STAFF. WOUND BED CHANGES NOTED TO SACRAL DEEP TISSUE INJURY INCLUDING SOME NECROTIC TISSUE. SACRAL DTI WAS NOTED TO BE PRESENT ON ADMISSION AND IS FOLLOWED BY SURGICAL TEAM. DISCUSSED WITH SURGICAL P.A. AND TREATMENT ORDERS UPDATED. DISCUSSED WITH NURSING STAFF. PT IS INCONTINENT OF URINE AND STOOL. PT IS ON FIRST STEP [facility]. IN AGREEMENT WITH PLAN OF CARE. Addendum: 04/24/21 at 0939 by MILLER SNELL WNDNU Amended: Links added.
[2021-04-24] MEDS ORDERED: DAKINS QUARTER STRENGTH (0.125%) 480 ML BOTTLE TOP SCH (10:00)
[2021-04-24] MEDS ORDERED: POTASSIUM CHLORIDE 20 MEQ TAB.PRT.SR PO SCH (10:00)
[2021-04-24] MEDS ORDERED: K PHOS NEUTRAL 250 MG TABLET PO ONE (10:00)
[2021-04-24] MEDS: MUPIROCIN OINT 2% 22 GM TUBE NS SCH (10:22)
[2021-04-24] MEDS: FLUTICASONE PROPIONATE 16 GM BOTTLE NS SCH (10:23)
[2021-04-24] MEDS: IV D5/ 0.9% NACL 1,000 ML IV SCH (10:46)
[2021-04-24] MEDS ORDERED: IV D5/0.45 NACL 1,000 ML IV PRN (12:00)
[2021-04-24] MEDS ORDERED: METOPROLOL TARTRATE 50 MG TABLET PO SCH (12:00)
[2021-04-24] MEDS: MORPHINE SULFATE INJ 2 MG/ML DISP.SYRIN IV PRN (15:24)
--- NOTE | 2021-04-24 16:00 | NUR ---
RN NOTE PT WAS TRANSFERRED TO [facility]. ENDORSE TO FELICIA EDDY. PT WAS PICKED UP BY 2 AMBULANCE PERSONNEL AND DAUGHTER WAS PRESENT DURING TRANSFER. PT IN STABLE CONDITION. NO SOB NOTED. D/C INSTRUCTIONS WAS GIVEN TO TRANSPORT. ANI WAS NOT D/C REQUESTED BY [facility] RN BECAUSE PT IS A HARD STICK.
[2021-04-24 16:11] VITALS: BP 111/62
== END 2021-04-24 17:16 | DRG 871 ==
LOC: ER 02:50 → TELE1 05:39 → TELE 07:25 → TELE1 07:27 → MEDSG1 04-21 05:22 → MED 04-22 06:41
PROVIDERS: ADMIT Nurse Practitioner Family
PROC: 05HC33Z Insertion of Infusion Device into Left Basilic Vein, Percutaneous Approach (ICD-10-PCS; principal; 2021-04-20)
PROC: 05HC33Z Insertion of Infusion Device into Left Basilic Vein, Percutaneous Approach (ICD-10-PCS; 2021-04-20)
DX: B37.7 Candidal sepsis (principal); E43 Unspecified severe protein-calorie malnutrition; J18.9 Pneumonia, unspecified organism; G93.41 Metabolic encephalopathy; J96.21 Acute and chronic respiratory failure with hypoxia; I21.4 Non-ST elevation (NSTEMI) myocardial infarction; N17.0 Acute kidney failure with tubular necrosis; I13.0 Hypertensive heart and chronic kidney disease with heart failure and stage 1 through stage 4 chronic kidney disease, or unspecified chronic kidney disease; E87.0 Hyperosmolality and hypernatremia; E87.2 Acidosis; I48.20 Chronic atrial fibrillation, unspecified; B37.49 Other urogenital candidiasis; Z66 Do not resuscitate; Z20.822 Contact with and (suspected) exposure to COVID-19; I50.9 Heart failure, unspecified; N18.9 Chronic kidney disease, unspecified; R65.20 Severe sepsis without septic shock; K21.9 Gastro-esophageal reflux disease without esophagitis; I70.0 Atherosclerosis of aorta; E78.00 Pure hypercholesterolemia, unspecified; E78.5 Hyperlipidemia, unspecified; E83.39 Other disorders of phosphorus metabolism; Z79.82 Long term (current) use of aspirin; Z79.84 Long term (current) use of oral hypoglycemic drugs; E86.0 Dehydration; R74.01 Elevation of levels of liver transaminase levels; E87.5 Hyperkalemia; E66.01 Morbid (severe) obesity due to excess calories; F29 Unspecified psychosis not due to a substance or known physiological condition; D64.9 Anemia, unspecified; E03.9 Hypothyroidism, unspecified; F32.A Depression, unspecified; Z68.36 Body mass index [BMI] 36.0-36.9, adult; R47.1 Dysarthria and anarthria; I35.0 Nonrheumatic aortic (valve) stenosis; B96.4 Proteus (mirabilis) (morganii) as the cause of diseases classified elsewhere; Y95 Nosocomial condition; Z90.49 Acquired absence of other specified parts of digestive tract; Z86.718 Personal history of other venous thrombosis and embolism; L89.159 Pressure ulcer of sacral region, unspecified stage; S61.412A Laceration without foreign body of left hand, initial encounter; X58.XXXA Exposure to other specified factors, initial encounter; Y92.9 Unspecified place or not applicable; Z87.19 Personal history of other diseases of the digestive system
CPT/HCPCS: 36415; 70450-TC; 71045-TC; 76700-TC; 80048-TC; 80053-TC; 80061-TC; 80076-TC; 80202-TC; 81001; 82728-TC; 82962-TC; 83540-TC; 83605-TC; 83735-TC; 83880; 84100-TC; 84443-TC; 84484-TC; 85025-TC; 85730-TC; 86704; 86803; 86850-TC; 87040-TC; 87081-TC; 87086-TC; 87186-TC; 87340; 87806; 92526; 92611-TC; 93307-TC; 93970-TC; 97112-TC; 97530-TC; A4216; C9803; G0378; J0456; J0692; J1644; J1815; J1940; J1956; J2060; J2248; J2270; J2405; J3370; J3480; J3490; J7030; J7042; J7050; J7060; P9047; U0003